=== PATIENT | male | born 1995 | race Hispanic/Latino ===

== ENCOUNTER → 2017-05-06 | Outpatient (CLI) | payer OTHER ==
[~2017-05-06] MED LIST: CONRAY-43 43% 50ML VIAL (Q9960) As Ordered; PROHANCE 279.3MG/ML 5ML VIAL (A9576) As Ordered
== END ==
LOC: M RADPRO 07:03
DX: M25.511 Pain in right shoulder (principal); M65.811 Other synovitis and tenosynovitis, right shoulder
CPT/HCPCS: 23350